=== PATIENT | male | born 1945 | race American Indian/Alaskan Native ===

== ENCOUNTER 2020-01-08 13:18 | Outpatient (REF) | payer OTHER, SELFPAY ==
[2020-01-08 14:46] LABS: Alanine Aminotransferase 21 U/L (0-40); Albumin Level 4.2 g/dL (3.5-5.0); Alkaline Phosphatase 48 U/L (39-117); Anion Gap 13 (12-20); Aspartate Amino Transferase 27 U/L (5-37); Bilirubin Total 0.5 mg/dL (0.0-1.0); Blood Urea Nitrogen 13 mg/dL (9-16); Carbon Dioxide 28 mmol/L (22-29); Chloride 100 mmol/L (96-108); Estimated Glomerular Filt Rate 59; Glucose Random 154 mg/dL (60-115); Sodium 136 mmol/L (135-145)
[2020-01-08 15:08] LABS: T4 Thyroxine 6.5 ug/dL (4.5-12.0); Thyroid Stimulating Hormone 2.69 uIU/mL (0.32-4.0)
[2020-01-08 15:26] LABS: Folate 14.3 ng/mL (> or = 4.0); Vitamin B12 317 pg/mL (200-900)
== END 2020-01-08 13:19 | disposition home or self-care (01) ==
LOC: HO.LAB 13:18
PROVIDERS: Visit Provider Psychiatry & Neurology Neurology
DX: G31.84 Mild cognitive impairment of uncertain or unknown etiology (principal)
CPT/HCPCS: 80053; 82607; 82746; 84436; 84443

== ENCOUNTER 2020-02-11 11:10 | Outpatient (REF) | payer OTHER, SELFPAY ==
--- NOTE | 2020-02-11 | MR_ITS ---
MRI OF THE BRAIN WITHOUT IV CONTRAST INDICATION: Multi infarct dementia. Cerebral vascular disease. COMPARISON: None available. TECHNIQUE: Multiplanar multisequence MR imaging of the brain was obtained without IV contrast. FINDINGS: There is no hydrocephalus, extra-axial surface collection, or herniation. There is global cerebral volume loss and there is mild chronic microangiopathy. The major flow voids at the skull base are preserved. There is no acute infarct on diffusion-weighted imaging. There is no intracranial hemorrhage on the gradient recalled echo acquisition. The midline structures are normal. The cerebellar tonsils are normally positioned. The cerebellum and brainstem are normal. The craniocervical junction is normal. Osseous marrow signal intensity is homogenous. The visualized soft tissues are unremarkable. There is moderate mucosal thickening throughout the ethmoid air cells bilaterally and within the left maxillary sinus. There is mild mucosal thickening within the right maxillary sinus. MR/MR head/brain wo con IMPRESSION: - No acute intracranial findings. - There is global cerebral volume loss and there is mild chronic microangiopathy. - Moderate sinus mucosal disease as described.
== END 2020-02-11 11:11 | disposition home or self-care (01) ==
LOC: HO.MRI 11:10
PROVIDERS: Visit Provider Psychiatry & Neurology Neurology
DX: G31.84 Mild cognitive impairment of uncertain or unknown etiology (principal); R42 Dizziness and giddiness
CPT/HCPCS: 70551